=== PATIENT | male | born 1985 | race Two or more races ===

== ENCOUNTER → 2021-04-30 15:27 | Outpatient (BNVA) | payer MEDICAID, SELFPAY | PROVIDERS: PCP Internal Medicine; Referring Provider Family Medicine; Visit Provider Surgery | DX: L72.0 Epidermal cyst (principal) | CPT/HCPCS: 99202 ==

== ENCOUNTER 2021-05-23 11:05 | Outpatient (REF) | payer MEDICAID, SELFPAY ==
[2021-05-23 11:12] VITALS: BMI 25.5
[2021-05-23 11:13] VITALS: BP 102/60; PULSE 74; RESP 16; TEMP 36.9; O2SAT 97
[2021-05-23 11:55] VITALS: BP 121/62; PULSE 70; RESP 16; O2SAT 100
--- NOTE | 2021-05-24 13:47 | P.OP_ITS ---
Operative Note Operative Note Date of Service: 05/24/21 Narrative: Preoperative diagnosis:Epidermal inclusion cyst left arm Postoperative diagnosis: same Procedure: excision of epidermal inclusion cyst left neck Surgeon: Andrea Chang MD Call Center Team Leader: no surgeon Anesthesia: local Indications for procedure: 36-year-old male patient presenting with enlarging cyst of the left neck. Lesion is tender but not infected. He presents for excision. Operative findings: 1.5 cm epidermal inclusion cyst left neck Specimen: epidermal inclusion cyst, neck Estimated blood loss: 1 mL Complications: none Procedure details: patient was brought to the minor surgery suite and placed in a supine position. The site of surgery was confirmed by the patient in the left neck and informed consent assured. Skin of the left neck was prepped with Betadine and draped in a sterile fashion. Local anesthesia consisting of 1% lidocaine with epinephrine was then infiltrated circumferentially around the lesion. An elliptical incision was then created with a scalpel oriented transversely. Incision was carried down through subcutaneous tissue and around the cyst wall. Lesion was passed off the table and sent to pathology for further examination. Skin was then closed using interrupted 4-0 nylon sutures. Sterile dressings consisting of 2 x 2 gauze and Tegaderm were then applied. Patient tolerated the procedure well. He was discharged to home in stable condition.
== END 2021-05-23 11:06 | disposition home or self-care (01) ==
LOC: HO.MS 11:05
PROVIDERS: Visit Provider Surgery
PROC: (CPT 11422; principal; 2021-05-23 11:00)
DX: L72.0 Epidermal cyst (principal)
CPT/HCPCS: 11422; 88304

== ENCOUNTER → 2021-06-04 | Outpatient (BNVA) | payer MEDICAID, SELFPAY | PROVIDERS: Visit Provider Surgery | DX: L72.8 Other follicular cysts of the skin and subcutaneous tissue (principal); Z48.02 Encounter for removal of sutures | CPT/HCPCS: 99212 ==

== ENCOUNTER → 2021-07-29 13:08 | Outpatient (BNVA) | payer MEDICAID, SELFPAY | PROVIDERS: PCP Family Medicine; Visit Provider Anesthesiology | DX: M47.816 Spondylosis without myelopathy or radiculopathy, lumbar region (principal) | CPT/HCPCS: 99202 ==

== ENCOUNTER 2021-08-02 13:00 | Outpatient (RCR) | payer MEDICAID, SELFPAY | END 2022-01-31 08:43 | disposition home or self-care (01) | LOC: HO.PTCHIC 13:00 | PROVIDERS: PCP Family Medicine; Visit Provider Family Medicine | DX: M54.16 Radiculopathy, lumbar region (principal) | CPT/HCPCS: 97110; 97140; 97150; 97161; 97530 ==

== ENCOUNTER 2021-08-20 06:07 | Outpatient (REF) | payer MEDICAID, SELFPAY ==
--- NOTE | ~2021-08-20 | FL_ITS ---
EXAMINATION: XR FLUOROSCOPY WITH IMAGES CLINICAL INFORMATION: Spondylosis without myelopathy or radiculopathy. COMPARISON: None. TECHNIQUE: Fluoroscopy performed by Yazmin Myers NP. Fluoroscopy time: 0.7 minutes DAP: 2.1 Gy-cm2 Images: 6 FINDINGS: Imaging demonstrates a needle and contrast at multiple foraminal locations. FL/FL guidance in treatment room IMPRESSION: Fluoroscopic guidance and spot films provided to Yazmin Myers for injection procedure. Please see Yazmin Myers's procedure note for further details.
== END 2021-08-20 06:08 | disposition home or self-care (01) ==
LOC: HO.RADIR 06:07
PROVIDERS: Visit Provider Anesthesiology
DX: M47.816 Spondylosis without myelopathy or radiculopathy, lumbar region (principal)
CPT/HCPCS: 64493; 64494; J3300; Q9967

== ENCOUNTER → 2021-08-22 09:50 | Outpatient (BNVA) | payer MEDICAID, SELFPAY | PROVIDERS: PCP Family Medicine; Visit Provider Anesthesiology | DX: M47.816 Spondylosis without myelopathy or radiculopathy, lumbar region (principal); Z98.890 Other specified postprocedural states | CPT/HCPCS: 99212 ==

== ENCOUNTER 2021-08-27 06:05 | Outpatient (REF) | payer MEDICAID, SELFPAY ==
--- NOTE | ~2021-08-27 | FL_ITS ---
EXAMINATION: XR FLUOROSCOPY WITH IMAGES CLINICAL INFORMATION: Spondylosis without myelopathy or radiculopathy COMPARISON: None. TECHNIQUE: Fluoroscopy performed by Dr. Myers. Fluoroscopy time: 0.6 minutes DAP: 5 Gycm2 Images: 6 FINDINGS: Images demonstrate needle placement and contrast injection adjacent to the bilateral L3-L4 and L5 vertebral bodies. FL/FL guidance in treatment room IMPRESSION: Fluoroscopy guidance for pain management procedure.
== END 2021-08-27 06:06 | disposition home or self-care (01) ==
LOC: HO.RADIR 06:05
PROVIDERS: Visit Provider Anesthesiology
DX: M47.816 Spondylosis without myelopathy or radiculopathy, lumbar region (principal)
CPT/HCPCS: 64493; 64494; Q9967

== ENCOUNTER → 2021-09-02 08:10 | Outpatient (BNVA) | payer MEDICAID, SELFPAY | PROVIDERS: PCP Family Medicine; Visit Provider Anesthesiology | CPT/HCPCS: 99212 ==

== ENCOUNTER 2021-09-24 06:19 | Outpatient (REF) | payer MEDICAID, SELFPAY | END 2021-09-24 06:20 | disposition home or self-care (01) | LOC: HO.RADIR 06:19 | PROVIDERS: Visit Provider Anesthesiology | DX: M47.816 Spondylosis without myelopathy or radiculopathy, lumbar region (principal) | CPT/HCPCS: Q9967 ==

== ENCOUNTER 2022-02-17 14:58 | Outpatient (REF) | payer MEDICAID, SELFPAY ==
--- NOTE | ~2022-02-17 | XR_ITS ---
EXAMINATION: XR CHEST CLINICAL INFORMATION: Chest pain COMPARISON: None TECHNIQUE: 2 views of the chest were obtained. FINDINGS: The cardiac and mediastinal contours are normal. There is a 4 mm nodule in the right lower lobe. The lungs are otherwise clear. There is no pleural effusion. Bony structures are unremarkable. XR/XR chest 2V IMPRESSION: 4 mm right pulmonary nodule. This probably represents a calcified granuloma. Otherwise unremarkable exam.
== END 2022-02-17 14:59 | disposition home or self-care (01) ==
LOC: HO.XRAY 14:58
PROVIDERS: PCP Family Medicine; Visit Provider Family Medicine
DX: R07.89 Other chest pain (principal)
CPT/HCPCS: 71046

== ENCOUNTER → 2022-03-05 09:15 | Outpatient (BNVA) | payer MEDICAID, SELFPAY | PROVIDERS: PCP Family Medicine; Referring Provider Family Medicine; Visit Provider Internal Medicine | DX: R07.2 Precordial pain (principal) | CPT/HCPCS: 93005; 99202 ==

== ENCOUNTER 2023-10-20 08:40 | Outpatient (REF) | payer MEDICAID, SELFPAY ==
[2023-10-20 14:28] LABS: MANUAL DIFF FLAG NO
[2023-10-20 14:40] LABS: Basophils Percent Auto 0.3 % (0-2); Eosinophils Absolute Auto 0.1 X10*3/uL (0.0-0.4); Eosinophils Percent Auto 1.9 % (0-4); Hematocrit 41.5 % (42.0-52.0); Hemoglobin 13.8 g/dl (14.0-18.0); Imm Gran Abs Auto 0.02 X10*3/uL (0.00-0.03); Imm Gran Pct Auto 0.3 % (0.0-0.4); Lymphocytes Absolute Auto 0.9 X10*3/uL (1.2-4.9); Lymphocytes Percent Auto 16.1 % (20-40); Mean Corpuscular HGB Conc 33.3 g/dl (31.0-36.0); Mean Corpuscular Hemoglobin 29.4 pg (27.0-33.0); Mean Corpuscular Volume 88.3 fL (80.0-98.0); Mean Platelet Volume 10.7 fL (9.4-12.4); Monocytes Absolute Auto 0.6 X10*3/uL (0.1-1.2); Monocytes Percent Auto 9.5 % (2-11); Neutrophils Absolute Auto 4.2 x10*3/uL (2.0-8.3); Neutrophils Percent Auto 71.9 % (45-73); Platelet Count 210 X10*3/uL (160-400); Red Cell Distribution Width 12.1 % (11.0-16.0); White Blood Count 5.8 X10*3/uL (4.8-10.8)
[2023-10-20 17:29] LABS: Alanine Aminotransferase 40 U/L (0-40); Albumin Level 4.2 g/dL (3.5-5.0); Alkaline Phosphatase 49 U/L (39-117); Anion Gap 10 (12-20); Aspartate Amino Transferase 21 U/L (5-37); Bilirubin Total 0.3 mg/dL (0.0-1.0); Blood Urea Nitrogen 14 mg/dL (9-16); Calcium 9.2 mg/dL (8.4-10.2); Carbon Dioxide 26 mmol/L (22-29); Chloride 108 mmol/L (96-108); Cholesterol 129 mg/dL (<200); Estimated Glomerular Filt Rate > 60; Glucose Random 89 mg/dL (60-115); HDL Cholesterol 34 mg/dL (>40); LDL Cholesterol Calculated 75 mg/dL (<100); Potassium 4.3 mmol/L (3.3-5.1); Sodium 140 mmol/L (135-145); Total Protein 7.5 g/dL (6.5-8.0); Triglycerides 104 mg/dL (<150)
[2023-10-21 08:29] LABS: ~HepC Num1 0.15 S/CO (0.00-0.79); ~Hepatitis C Antibody Nonreactive (Nonreactive)
== END 2023-10-20 08:41 | disposition home or self-care (01) ==
LOC: HO.CHCLDS 08:40
PROVIDERS: Visit Provider Family Medicine
DX: Z00.00 Encounter for general adult medical examination without abnormal findings (principal); E78.2 Mixed hyperlipidemia
CPT/HCPCS: 36415; 80053; 80061; 85025; 86803